=== PATIENT | male | born 1950 | race Caucasian/White ===

== ENCOUNTER 2020-06-13 07:11 | Emergency (ER) | payer MEDICARE, OTHER ==
[~2020-06-13 07:11] MED LIST: ALPRAZOLAM0.5 MG PO; ASPIR-LOW81 MG PO; ASPIRIN EC81 MG PO; CARVEDILOL12.5 MG PO; CLOPIDOGREL75 MG PO; COREG 12.5MG12.5 MG PO; COREG 3.125M3.125 MG PO; FISH OIL 1,0001 EAC4 PO; FISH OIL 10001000 MG PO; FLOMAX 0.4 MG0.4 MG PO; FUROSEMIDE40 MG PO; HOME OXYGEN; IPRAT-ALBUT 0.5-3 ML INH; KLOR-CON 1010 MEQ PO; LACTULOSE10 GM/152 PO; LASIX20 MG PO; LIPITOR TAB 2020 MG PO; NEBULIZER INH; NITROGLYCERIN0.4 MG SL; NITROSTAT0.4 MG SL; NORVASC 5 MG TAB5 MG PO; OMEPRAZOLE40 MG PO; PERCOCET 10-321 EACH PO; POTASSIUM CHLO20 ME1 PO; PRILOSEC OTC20 MG PO; REQUIP0.25 MG PO; SOLUMEDROL INJ125 MG IV; SYMBICORT 160-1 INHA INH; VITAMIN C 500500 MG PO
[2020-06-13 09:08] LABS: HEMOGLOBIN 16.3 gm/dl (14.0-17.5); RED BLOOD COUNT 5.19 M/UL (4.20-5.50); WHITE BLOOD COUNT 4.7 K/UL (4.5-11.0)
[2020-06-13 09:35] LABS: BUN/CREATININE RATIO 16 (0-10)
== END 2020-06-13 11:55 | disposition home or self-care (01) ==
LOC: ER1 07:11
PROVIDERS: Emergency Medicine
DX: U07.1 COVID-19 (principal); J44.1 Chronic obstructive pulmonary disease with (acute) exacerbation
CPT/HCPCS: 0240U; 71045; 80053; 82550; 82553; 83874; 83880; 84484; 85025; 93005; 96374; 99284; J1100

== ENCOUNTER → 2020-09-08 | Outpatient (CLI) | payer MEDICARE | LOC: EXRD 09:09 | DX: Z13.6 Encounter for screening for cardiovascular disorders (principal) | CPT/HCPCS: 76706 ==

== ENCOUNTER 2021-07-11 19:32 | Emergency (ER) | payer MEDICARE ==
[2021-07-11 20:35] LABS: HEMOGLOBIN 15.6 gm/dl (14.0-17.5); RED BLOOD COUNT 4.99 M/UL (4.20-5.50); WHITE BLOOD COUNT 6.9 K/UL (4.5-11.0)
[2021-07-11 20:53] LABS: BUN/CREATININE RATIO 14 (0-10)
== END 2021-07-11 22:12 | disposition home or self-care (01) ==
LOC: ER1 19:32
PROVIDERS: Physician Assistant
DX: S16.1XXA Strain of muscle, fascia and tendon at neck level, initial encounter (principal); S30.0XXA Contusion of lower back and pelvis, initial encounter; I10 Essential (primary) hypertension; J44.9 Chronic obstructive pulmonary disease, unspecified; W19.XXXA Unspecified fall, initial encounter
CPT/HCPCS: 36600; 70450; 71045; 72125; 72131; 80053; 81001; 82550; 82553; 82803; 84484; 85025; 93005; 99284

== ENCOUNTER → 2021-09-05 | Outpatient (CLI) | payer MEDICARE | LOC: HEART 5 08:19 | DX: I20.9 Angina pectoris, unspecified (principal) | CPT/HCPCS: 78452; 93306; A9502; J2785 ==

== ENCOUNTER → 2022-01-04 | Outpatient (CLI) | payer MEDICARE | LOC: EXRD 10:08 | DX: M54.2 Cervicalgia (principal); G89.29 Other chronic pain; M54.50 Low back pain, unspecified; Z98.1 Arthrodesis status; M47.816 Spondylosis without myelopathy or radiculopathy, lumbar region; M43.16 Spondylolisthesis, lumbar region | CPT/HCPCS: 72050; 72110 ==